=== PATIENT | female | born 1990 | race Caucasian/White ===

== ENCOUNTER 2020-07-02 08:49 | Emergency (ER) | payer OTHER, SELFPAY ==
[2020-07-02 08:49] VITALS: BP 139/83; PULSE 93; RESP 18; TEMP 36.6; O2SAT 100; BMI 18.6
[2020-07-02 08:51] VITALS: BP 139/83; PULSE 93; RESP 18; TEMP 36.6; O2SAT 100
--- NOTE | 2020-07-02 09:39 | EKG12_ITS ---
Test Reason : CP Blood Pressure : / mmHG Vent. Rate : 069 BPM Atrial Rate : 069 BPM P-R Int : 174 ms QRS Dur : 096 ms QT Int : 368 ms P-R-T Axes : -01 064 068 degrees QTc Int : 394 ms Normal sinus rhythm Normal ECG Confirmed by BLAKE LARSEN, BOB ([id number]), rewrite editor MELONIE RUSH ([id number]) on 07/05/2020 1:10:37 PM Referred By: SONNY Confirmed By:BOB LOZANO MD
--- NOTE | 2020-07-02 09:39 | CT_ITS ---
STUDY: CTA CHEST REASON FOR EXAM: Female, 29 years old. R/O PE. CP X 4 DAYS. DEEP BREATHING WORSE. COVID 1 MO AGO. RADIATION DOSAGE (If Supplied By Facility): CTDIvol = ( 4.13 ) mGy, DLP = ( 136.66 ) mGycm TECHNIQUE: The examination was performed with the intravenous administration of IV 75mL Isovue-370. Post-processing of the angiographic images was performed, with multiplanar reformation and 3D reconstruction. Individualized dose optimization techniques were used for this CT. COMPARISON: None. FINDINGS: Normal enhancement of the main pulmonary artery and right and left pulmonary arteries. Normal enhancement of the bilateral peripheral pulmonary arteries. There is no demonstrated pulmonary embolism. Normal thoracic aorta and visualized great vessels. There is no demonstrated aortic dissection. Normal heart and pericardium. Normal mediastinum. Normal hilar regions. Normal visualized trachea and bronchi. The lungs are well expanded. Normal pulmonary parenchyma. Normal pleura. Normal chest wall structures. Normal osseous structures. Normal visualized upper abdomen. CT/CTA Chest W/WO Contrast IMPRESSION: Normal CTA chest examination, without a demonstrated pulmonary embolism or arterial dissection. Electronically Signed: Aleksandr Goode, at 10:44 EST , Service support ,
--- NOTE | 2020-07-02 10:01 | ED.VISSUMM ---
- ER Visit Summary Date of Service: 07/02/20 Chief Complaint: Chest pain History of Present Illness: The patient is a 29 F presenting with chest pain. Patient states this started on Sunday. Pain has been intermittent. She states she was diagnosed with Covid over 1 month ago. She tested negative for Covid on May 29. She traveled to [place] recently and returned on Sunday. She has chills, chest pain, shortness of breath. She states the pain is worsened with deep inspiration. She states she generally still feels fatigued after Covid but otherwise her symptoms have improved. Denies family history of CAD or PE. She is not a smoker. Physical Examination: Vitals are stable. Patient is afebrile. Alert no acute distress. HEENT exam is unremarkable. Neck is supple. Lungs are clear and equal bilaterally. Heart is regular rate and rhythm. Abdomen is soft nontender nondistended. Extremities are unremarkable. Nontender, no edema Skin is warm and dry. No focal neurologic deficit. Remainder of exam is unremarkable. Emergency Department Course and Treatment: EKG is sinus rhythm rate of 69 with no acute ischemic changes. CBC, chemistries unremarkable. Troponin is negative. hCG negative. CTA chest shows normal CTA chest examination, without a demonstrated pulmonary embolism or arterial dissection. On reevaluation, patient is resting comfortably in the ED. Advised to take NSAIDs for pain. She is advised to follow-up with her primary care physician. Advised return to ED for worsening complaints. Disposition: Discharge home Impression: Atypical chest pain This note was generated with [employer] dictation software. It may contain incorrect words, spelling, and punctuation that were not noted in review of the chart prior to signing ED Disposition - Plan for ED Patient: Instructions: ED Chest Pain, Uncertain Cause Referrals: Ramesh Pratt MD [Primary Care Provider] -
[2020-07-02 10:04] LABS: Basophil# 0.03 X10^3/uL; Basophil% 0.8 % (0-1); Eosinophil# 0.09 X10^3/uL; Eosinophils% 2.3 % (0-5); Hemoglobin 13.5 g/dL (12.0-15.0); Lymphocyte % 36.2 % (19-41); Mean Corp Hgb Conc 33.8 g/dL (32-36); Mean Corpuscular Hgb 30.5 pg (27.0-32.0); Mean Corpuscular Volume 90.5 fL (81-99); Mean Platelet Vol. 10.5 fl (6.2-12.0); Monocyte# 0.38 X10^3/uL; Monocyte% 9.8 % (0-10); NRBC Flagged by Analyzer 0 % (0-5); Neutrophil # 1.96 X10^3/uL (2.7-7.7); Neutrophil % 50.6 % (47-70); Platelet Count 207 K/mm3 (150-450); RBC Distribution Width CV 12.8 % (11.6-14.6); RBC Distribution Width SD 41.9 fl (35.1-43.9); Red Blood Count 4.42 M/mm3 (4.2-5.4); White Blood Count 3.9 K/mm3 (4.4-11.0)
[2020-07-02 10:06] LABS: Internal QC Validated? YES +Cl - CLEAR BKGD; Pregnancy, Serum, hCG Quali. NEGATIVE Negative
[2020-07-02 10:10] LABS: Anion Gap 4 (5-15); BUN 16 mg/dL (7-18); BUN/Creat Ratio 25.3 RATIO (10-20); Calcium,Total 8.7 mg/dL (8.5-10.1); Chloride 106 mmol/L (98-107); Creatinine, Serum 0.63 mg/dL (0.55-1.02); EST Glomerular Filtration Rate 118 mL/min (>60); Est Glom Filt Rate - Afr Amer 143 mL/min (>60); Glucose 94 mg/dL (74-106); Potassium 3.9 mmol/L (3.5-5.1); Sodium Level 138 mmol/L (136-145)
--- NOTE | 2020-07-02 10:54 | ED.DEP ---
ED Disposition - Plan for ED Patient: Instructions: ED Chest Pain, Uncertain Cause Referrals: Ramesh Pratt MD [Primary Care Provider] -
[2020-07-02 11:12] VITALS: BP 96/65; PULSE 81; RESP 15; O2SAT 100
== END 2020-07-02 11:13 | disposition home or self-care (01) ==
LOC: ED 10:09
PROVIDERS: Emergency Provider Emergency Medicine; PCP Family Medicine
DX: R07.89 Other chest pain (principal)
CPT/HCPCS: 71275; 80048; 84484; 84703; 85025; 93005; 99284; Q9967; A4216

== ENCOUNTER → 2020-07-26 16:43 | Outpatient (CLI) | payer OTHER, SELFPAY ==
[2020-07-26 14:36] VITALS: BMI 19.3
[2020-07-26 21:00] LABS: Chlamydia Trachomatis by PCR Negative (Negative); Neisserai gonorrhoeae by PCR Negative (Negative); Probe Check PASS; Sample Adequacy Control PASS; Specimen Processing Control PASS
[2020-07-29 12:36] LABS: HPV Reflexed? NOT INDICATED
== END ==
LOC: LABSPEC 16:44
PROVIDERS: PCP Family Medicine; Referring Provider Nurse Practitioner Women's Health; Visit Provider Nurse Practitioner Women's Health
DX: Z11.3 Encounter for screening for infections with a predominantly sexual mode of transmission (principal); Z12.4 Encounter for screening for malignant neoplasm of cervix
CPT/HCPCS: 87491; 87591; 88175; G0145

== ENCOUNTER → 2020-08-05 12:23 | Outpatient (CLI) | payer OTHER, SELFPAY ==
[2020-07-26 14:36] VITALS: BMI 19.3
--- NOTE | 2020-08-05 12:27 | US_ITS ---
STUDY: ULTRASOUND OF THE FEMALE PELVIS - COMPLETE REASON FOR EXAM: Female, 29 years old. Abnormal menses LMP: 07/10/2020 TECHNIQUE: Transabdominal and Transvaginal TECHNICAL QUALITY: Adequate. COMPARISON: None. FINDINGS: The uterus is anteverted and is in a midline position. The uterus measures 8.8 cm x 4.7 cm x 4 cm. There is a Nabothian cyst of the cervix. The endometrium measures 8.6 mm in thickness, and is hyperechoic. There is no demonstrated endometrial mass. There is no demonstrated myometrial mass. I.U.D. - The patient does not have an I.U.D. The right ovary is visualized. The right ovary measures 4.1 cm x 4.4 cm x 3.4 cm. There is a 2.5 cm x 3.2 cm x 2.6 cm cyst in the right ovary. There is also evidence of a 2.3 cm x 1.6 cm x 1.2 cm Ovarian cyst. This may represent a dilated fallopian tube. There is no visualized right adnexal mass or complex lesion. There is normal arterial and normal venous vascularity. The left ovary is visualized. The left ovary measures 3.2 cm x 1.7 cm x 2.5 cm. There is no left ovarian cyst or ovarian mass. There is no visualized left adnexal mass or complex lesion. There is normal arterial and normal venous vascularity. There is no fluid in the cul-de-sac. The pre void volume of the bladder was 387 ml. US/Pelvic (Non ) IMPRESSION: 2.5 cm x 3.2 cm x 2.6 cm right ovarian cyst. 2.3 cm x 1.6 cm x 1.2 cm right paraovarian cyst. Electronically Signed: Aleksandr Goode, at 15:45 EST , Service support ,
--- NOTE | 2020-08-05 12:27 | US_ITS ---
STUDY: ULTRASOUND OF THE FEMALE PELVIS - COMPLETE REASON FOR EXAM: Female, 29 years old. Abnormal menses LMP: 07/10/2020 TECHNIQUE: Transabdominal and Transvaginal TECHNICAL QUALITY: Adequate. COMPARISON: None. FINDINGS: The uterus is anteverted and is in a midline position. The uterus measures 8.8 cm x 4.7 cm x 4 cm. There is a Nabothian cyst of the cervix. The endometrium measures 8.6 mm in thickness, and is hyperechoic. There is no demonstrated endometrial mass. There is no demonstrated myometrial mass. I.U.D. - The patient does not have an I.U.D. The right ovary is visualized. The right ovary measures 4.1 cm x 4.4 cm x 3.4 cm. There is a 2.5 cm x 3.2 cm x 2.6 cm cyst in the right ovary. There is also evidence of a 2.3 cm x 1.6 cm x 1.2 cm Ovarian cyst. This may represent a dilated fallopian tube. There is no visualized right adnexal mass or complex lesion. There is normal arterial and normal venous vascularity. The left ovary is visualized. The left ovary measures 3.2 cm x 1.7 cm x 2.5 cm. There is no left ovarian cyst or ovarian mass. There is no visualized left adnexal mass or complex lesion. There is normal arterial and normal venous vascularity. There is no fluid in the cul-de-sac. The pre void volume of the bladder was 387 ml. US/Transvaginal Non- IMPRESSION: 2.5 cm x 3.2 cm x 2.6 cm right ovarian cyst. 2.3 cm x 1.6 cm x 1.2 cm right paraovarian cyst. Electronically Signed: Aleksandr Goode, at 15:45 EST , Service support ,
== END ==
LOC: OPUS 12:24
PROVIDERS: PCP Family Medicine; Referring Provider Nurse Practitioner Women's Health; Visit Provider Nurse Practitioner Women's Health
DX: N94.6 Dysmenorrhea, unspecified (principal); N92.0 Excessive and frequent menstruation with regular cycle
CPT/HCPCS: 76830; 76856

== ENCOUNTER → 2020-08-11 08:51 | Outpatient (CLI) | payer OTHER, SELFPAY ==
[2020-07-26 14:36] VITALS: BMI 19.3
== END ==
PROVIDERS: PCP Family Medicine; Referring Provider Nurse Practitioner Women's Health; Visit Provider Nurse Practitioner Women's Health
DX: N97.0 Female infertility associated with anovulation (principal)
CPT/HCPCS: 36415

== ENCOUNTER → 2020-09-20 08:55 | Outpatient (CLI) | payer OTHER, SELFPAY ==
[2020-07-26 14:36] VITALS: BMI 19.3
--- NOTE | 2020-09-20 08:59 | US_ITS ---
STUDY: ULTRASOUND OF THE FEMALE PELVIS - COMPLETE REASON FOR EXAM: Female, 29 years old. Rt ov cyst LMP: 04/06/2021. TECHNIQUE: Transabdominal and Transvaginal TECHNICAL QUALITY: Adequate. COMPARISON: Comparison is made with prior study dated 09/05/2020. FINDINGS: The uterus is anteverted and is in a midline position. The uterus measures 8.8 cm x 5.9 cm x 4.4 cm. Normal uterine cervix. The endometrium measures 10 mm in thickness, and is hyperechoic. There is no demonstrated endometrial mass. There is no demonstrated myometrial mass. I.U.D. - The patient does not have an I.U.D. The right ovary is visualized. The right ovary measures 4.6 cm x 3.7 cm x 2.3 cm. There is a 2.5 cm x 2.7 cm x 1.8 cm septated cyst in the right ovary. There is also evidence of a 2.2 cm x 1.6 cm x 1.2 cm paraovarian cyst. There is normal arterial and normal venous vascularity. The left ovary is visualized. The left ovary measures 2.9 cm x 1.7 cm x 1.9 cm. There is no left ovarian cyst or ovarian mass. There is no visualized left adnexal mass or complex lesion. There is normal arterial and normal venous vascularity. There is minimal fluid in the cul-de-sac. The pre void volume of the bladder was 394 ml. The post void volume of the bladder was ml. Polycystic ovary disease: No. US/Transvaginal Non- IMPRESSION: 2.5 cm x 2.7 cm x 1.8 cm septated right ovarian cyst. 2.2 cm x 1.6 x 1.2 cm right paraovarian cyst. There has been essentially no change. Electronically Signed: Aleksandr Goode MD at 12:48 EST , Service support ,
--- NOTE | 2020-09-20 08:59 | US_ITS ---
STUDY: ULTRASOUND OF THE FEMALE PELVIS - COMPLETE REASON FOR EXAM: Female, 29 years old. Rt ov cyst LMP: 04/06/2021. TECHNIQUE: Transabdominal and Transvaginal TECHNICAL QUALITY: Adequate. COMPARISON: Comparison is made with prior study dated 09/05/2020. FINDINGS: The uterus is anteverted and is in a midline position. The uterus measures 8.8 cm x 5.9 cm x 4.4 cm. Normal uterine cervix. The endometrium measures 10 mm in thickness, and is hyperechoic. There is no demonstrated endometrial mass. There is no demonstrated myometrial mass. I.U.D. - The patient does not have an I.U.D. The right ovary is visualized. The right ovary measures 4.6 cm x 3.7 cm x 2.3 cm. There is a 2.5 cm x 2.7 cm x 1.8 cm septated cyst in the right ovary. There is also evidence of a 2.2 cm x 1.6 cm x 1.2 cm paraovarian cyst. There is normal arterial and normal venous vascularity. The left ovary is visualized. The left ovary measures 2.9 cm x 1.7 cm x 1.9 cm. There is no left ovarian cyst or ovarian mass. There is no visualized left adnexal mass or complex lesion. There is normal arterial and normal venous vascularity. There is minimal fluid in the cul-de-sac. The pre void volume of the bladder was 394 ml. The post void volume of the bladder was ml. Polycystic ovary disease: No. US/Pelvic (Non ) IMPRESSION: 2.5 cm x 2.7 cm x 1.8 cm septated right ovarian cyst. 2.2 cm x 1.6 x 1.2 cm right paraovarian cyst. There has been essentially no change. Electronically Signed: Aleksandr Goode MD at 12:48 EST , Service support ,
== END ==
LOC: US 08:59
PROVIDERS: PCP Family Medicine; Referring Provider Nurse Practitioner Women's Health; Visit Provider Nurse Practitioner Women's Health
DX: N83.209 Unspecified ovarian cyst, unspecified side (principal)
CPT/HCPCS: 76830; 76856

== ENCOUNTER 2020-11-23 09:59 | Day surgery (SDC) | payer OTHER, SELFPAY ==
[2020-10-04 13:04] VITALS: BMI 19.3
[2020-11-10 14:35] VITALS: BMI 18.4
[2020-11-23] VITALS (14 sets, daily range): BP systolic 86–115; BP diastolic 53–77; PULSE 46–102; RESP 16; TEMP 36.4–37.2; O2SAT 93–100; BMI 18.3
--- NOTE | 2020-11-23 10:44 | HP.PCM.OB_ITS ---
HPI - General HPI Narrative VANI SOLO, is a 29 F who presents diagnostic laparoscopy, fulguration of endometriosis, chromopertubation for pelvic pain with periods [facility] Medical History (Updated 11/23/20 @ 10:[address] Christie Peralta MD) Ovarian cyst Home Medications cranberry 400 mg capsule 400 mg PO DAILY 07/26/20 [History Last Taken Unknown] prenat.vits,geoffrey,ctd-cvem-mkgom 1 tab PO DAILY 10/04/20 [History Last Taken Unknown] Allergy/AdvReac Type Severity Reaction Status Date / Time azithromycin Allergy Rash Verified 11/16/20 11:21 [From Zithromax Z-Jeremie] Penicillins Allergy Rash Verified 11/16/20 11:21 Family History Grandmother Thyroid disorder Social History (Updated 11/10/20 @ 16:[address] 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 - [employer] history of recent travel: Yes out of state: Yes sexually active: Yes Smoking Status: Never smoker alcohol intake: current alcohol intake frequency: a few times a month substance use type: does not use what type of physical activity do you participate in: aerobics seatbelt use: always do you feel safe at home: Yes additional social history: - Dilshad History 0 Elective abortions Hx Para Spontaneous abortions Hx # Term Pregnancies Ectopic pregnancies Hx # Pregnancies Multiple births # of living children ROS Eyes Eyes: Reports systems reviewed and no addt'l complaints, except as documented ENT HEENT: Reports systems reviewed and no addt'l complaints, except as documented Cardiovascular Cardiovascular: Reports systems reviewed and no addt'l complaints, except as documented Respiratory/Chest Respiratory/Chest: Reports systems reviewed and no addt'l complaints, except as documented Gastrointestinal Gastrointestinal: Reports systems reviewed and no addt'l complaints, except as documented Genitourinary Genitourinary: Reports systems reviewed and no addt'l complaints, except as documented Musculoskeletal Musculoskeletal: Reports systems reviewed and no addt'l complaints, except as documented Integumentary Integumentary: Reports systems reviewed and no addt'l complaints, except as documented Neurologic Neurologic: Reports systems reviewed and no addt'l complaints, except as documented Psychiatric Psychiatric: Reports systems reviewed and no addt'l complaints, except as documented Endocrine Endocrinology: Reports systems reviewed and no addt'l complaints, except as documented Hematologic/Lymphatic Hematologic/Lymphatic: Reports systems reviewed and no addt'l complaints, except as documented Allergic/Immunologic Allergic/Immunologic: Reports systems reviewed and no addt'l complaints, except as documented Physical Exam Const alert, oriented x3, no apparent distress, average body habitus, healthy appearing and well nourished HEENT normocephalic and moist oral mucous membranes Head and Scalp: atraumatic Eyes PERRL and EOMs intact bilaterally Neck full ROM Resp normal respiratory effort, no retractions and no use of accessory muscles Cardio regular rate and regular rhythm GI soft to palpation, non-tender and non-distended Extremity normal to inspection and full ROM Skin no rashes or lesions noted Neuro no focal motor deficits and no sensory deficits noted Psych mental status grossly normal, affect normal, speech normal and activity/motor behavior normal Assessment & Plan Assessment/Plan (1) Dysmenorrhea: Status: Acute Code(s): N94.6 - Dysmenorrhea, unspecified (2) Ovarian cyst: Status: Acute Code(s): N83.209 - Unspecified ovarian cyst, unspecified side Qualifiers: Laterality: right Qualified Code(s): N83.201 - Unspecified ovarian cyst, right side Plan: Presents for diagnostic laparoscopy, fulguration of endometriosis, possible right ovarian cystectomy, possible right salpingo-oophorectomy, possible left, chromopertubation for ovarian cyst and pelvic pain Surgical risks discussed with the patient at the last visit and handouts given from [facility] and up-to-date.? Patient denies further questions regarding the risks and benefits of surgery. Medical history reviewed-no changes to medical or surgical history. Review of systems performed and is negative Consent form signed with patient at office visit.
[2020-11-23 10:49] LABS: Internal QC Validated? YES +Cl - CLEAR BKGD
[2020-11-23 10:51] LABS: Pregnancy, Urine Negative Negative
[2020-11-23 10:55] LABS: Hematocrit 40.3 % (37-47); Hemoglobin 13.2 g/dL (12.0-15.0); Mean Corp Hgb Conc 32.8 g/dL (32-36); Mean Corpuscular Hgb 30.1 pg (27.0-32.0); Mean Platelet Vol. 10.4 fl (6.2-12.0); Platelet Count 194 K/mm3 (150-450); RBC Distribution Width SD 43.8 fl (35.1-43.9); Red Blood Count 4.38 M/mm3 (4.2-5.4); White Blood Count 5.5 K/mm3 (4.4-11.0)
[2020-11-23] MEDS: Lactated Ringers 1,000 ML 100 ML IV ×4 (10:55→14:55)
[2020-11-23] MEDS: Bupivacaine 0.25% 30 ML Vial (11:44)
--- NOTE | 2020-11-23 12:41 | PCM.OPRPT ---
Problems Associated Problem List Diagnoses (1) Dysmenorrhea: (2) Ovarian cyst: Report of Operation Date of Procedure: 11/23/20 Pre-Operative Diagnosis: Dysmenorrhea, suspected ovarian cyst Post-Operative Diagnosis: Endometriosis, right paratubal cyst Surgery/Procedure Performed:: Diagnostic laparoscopy, fulguration of endometriosis, drainage of right paratubal cyst, chromotubation Description of Surgical Findings:: Right paratubal cyst noted. Normal-appearing uterus. Normal fallopian tubes bilaterally. Normal-appearing ovaries with left ovary adherent to pelvic sidewall. Areas of endometriosis noted over the bilateral uterosacral ligaments, ovarian fossa bilaterally, and on the left round ligament. 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 She was prepped and draped in the dorsal lithotomy position with yellofin stirrups. A weighted speculum was placed in the posterior aspect of the vagina and the anterior lip of the cervix was grasped with a single-tooth tenaculum. The uterus was sounded and found to be 8 cm. A Zumi uterine manipulator was placed without difficulty and all other instruments were removed from the vagina. Gloves were changed and attention was directed to the abdomen. The umbilicus was grasped with towel clamps. 10cc of 0.25% marcaine was used to anesthetize the umbilicus. A 5mm incision was made at the base of the umbilicus. A veress needle was inserted without difficulty and intra-abdominal placement was confirmed using the water-drop test. The abdomen was insufflated to 15 mmHg and the veress needle was removed. A 5mm optiview trochar was then placed under direct visualization. Initial survey of the abdominal cavity revealed no evidence of trauma. The above findings were noted. An additional 5mm ports were placed in the right and left lower quadrants. A [place] grasper attached to monopolar energy was used to fulgurate all noted areas of endometriosis. Chromopertubation was then performed and bilateral spill was noted. Scissors attached to monopolar cautery were used to drain the paratubal cyst. The procedure was deemed complete. All instruments were removed from the abdominal cavity. The port sites were closed in a simple interrupted fashion using 4-0 monocryl and sterile dressings were placed. The uterine manipulator was removed. The patient was awakened from anesthesia and taken to the recovery room in stable condition. Complications None apparent Admit VTE Documentation VTE Present on Admission: No VTE Mechan Device Prophylaxis: SCD's VTE Pharm Prophylaxis ordered?: No Multi Select Codes Urinary/Genital Urinary/Genital CPT Codes: 65834 Chromotubation and 72134 Laproscopic ablation endometriosis
== END 2020-11-23 16:07 ==
LOC: SDC 10:00 → AC 12:16
PROVIDERS: Anesthesiology; PCP Family Medicine; Referring Provider Obstetrics & Gynecology; Visit Provider Obstetrics & Gynecology
PROC: (CPT 49320; principal; 2020-11-23 11:15)
DX: N80.3 Endometriosis of pelvic peritoneum (principal); N94.6 Dysmenorrhea, unspecified; Z20.828 Contact with and (suspected) exposure to other viral communicable diseases; N83.201 Unspecified ovarian cyst, right side
CPT/HCPCS: 00840; 58350; 58662; 81025; 85027; 87426; C9803; J7120; J2405; Q9968

== ENCOUNTER 2021-08-02 08:12 | Outpatient (CLI) | payer OTHER, SELFPAY ==
[2021-08-02 09:11] LABS: Progesterone Level 5.33 ng/mL (See Comment)
== END 2021-08-02 23:59 | disposition short-term general hospital (02) ==
LOC: PAVLAB 08:13
PROVIDERS: PCP Family Medicine; Referring Provider Nurse Practitioner Women's Health; Visit Provider Nurse Practitioner Women's Health
DX: N97.0 Female infertility associated with anovulation (principal)
CPT/HCPCS: 36415; 84144

== ENCOUNTER 2021-10-04 17:30 | Outpatient (CLI) | payer OTHER, SELFPAY ==
[2021-10-04 18:27] LABS: Progesterone Level 9.28 ng/mL (See Comment)
== END 2021-10-04 23:59 | disposition home or self-care (01) ==
LOC: LAB 17:32
PROVIDERS: PCP Family Medicine; Visit Provider Nurse Practitioner Women's Health
DX: N97.9 Female infertility, unspecified (principal)
CPT/HCPCS: 36415; 84144

== ENCOUNTER 2021-10-18 11:41 | Outpatient (CLI) | payer OTHER, SELFPAY ==
--- NOTE | 2021-10-18 11:48 | RAD_ITS ---
STUDY: HYSTEROSALPINGOGRAM REASON FOR EXAM: Female, 30 years old. INFERTILITY FLUOROSCOPY TIME (if supplied): ( 24 second ) minutes/seconds. 3 images were obtained. TECHNIQUE: Hysterosalpingogram was performed by the manager solar. Imaging was provided. COMPARISON: None. FINDINGS: The uterus is unremarkable. Both fallopian tubes are patent with spill. RAD/Salpingogram IMPRESSION: Unremarkable hysterosalpingogram. Electronically Signed: Aleksandr Goode MD at 13:02 EDT ,
== END 2021-10-18 23:59 | disposition home or self-care (01) ==
LOC: RAD 11:44
PROVIDERS: PCP Family Medicine; Referring Provider Obstetrics & Gynecology; Visit Provider Obstetrics & Gynecology
DX: N97.0 Female infertility associated with anovulation (principal)
CPT/HCPCS: 58340; 74740; Q9967

== ENCOUNTER 2021-10-26 15:00 | Outpatient (CLI) | payer OTHER, SELFPAY | END 2021-10-26 23:59 | disposition home or self-care (01) | LOC: LABSPEC 10-27 14:01 | PROVIDERS: PCP Family Medicine; Referring Provider Nurse Practitioner Women's Health; Visit Provider Nurse Practitioner Women's Health | DX: R30.9 Painful micturition, unspecified (principal) | CPT/HCPCS: 87086; 87088 ==

== ENCOUNTER → 2021-12-09 | Outpatient (CLI) | payer OTHER, SELFPAY ==
[2021-12-09 11:33] LABS: hCG Titer Quant., Serum 462 mIU/mL (1-3)
== END | disposition home or self-care (01) ==
LOC: PAVLAB 10:29
PROVIDERS: PCP Family Medicine; Referring Provider Obstetrics & Gynecology; Visit Provider Obstetrics & Gynecology
DX: N91.2 Amenorrhea, unspecified (principal)
CPT/HCPCS: 36415; 84702

== ENCOUNTER → 2021-12-11 | Outpatient (CLI) | payer OTHER, SELFPAY ==
[2021-12-11 15:23] LABS: hCG Titer Quant., Serum 1188 mIU/mL (1-3)
== END | disposition home or self-care (01) ==
LOC: LAB 14:21
PROVIDERS: PCP Family Medicine; Visit Provider Obstetrics & Gynecology
DX: N91.2 Amenorrhea, unspecified (principal)
CPT/HCPCS: 36415; 84702

== ENCOUNTER → 2022-01-16 | Outpatient (CLI) | payer OTHER, SELFPAY ==
[2022-01-16 14:33] LABS: Absolute Lymphocyte Count 2.22 X10^3/uL (0.83-4.51); Absolute Neutrophil Count 6.3 X10^3/uL (2.0-7.7); Basophil# 0.03 X10^3/uL; Basophil% 0.3 % (0-1); Eosinophils% 1.1 % (0-5); Hematocrit 40.4 % (37-47); Hemoglobin 13.9 g/dL (12.0-15.0); Lymphocyte # 2.22 X10^3/ul (0.83-4.51); Lymphocyte % 23.8 % (19-41); Mean Corp Hgb Conc 34.4 g/dL (32-36); Mean Corpuscular Hgb 30.8 pg (27.0-32.0); Mean Corpuscular Volume 89.4 fL (81-99); Mean Platelet Vol. 10.3 fl (6.2-12.0); Monocyte% 6.4 % (0-10); NRBC Flagged by Analyzer 0 % (0-5); Neutrophil # 6.33 X10^3/uL (2.7-7.7); Platelet Count 259 K/mm3 (150-450); RBC Distribution Width CV 12.3 % (11.6-14.6); RBC Distribution Width SD 40.2 fl (35.1-43.9); Red Blood Count 4.52 M/mm3 (4.2-5.4); White Blood Count 9.3 K/mm3 (4.4-11.0)
[2022-01-16 15:26] LABS: NATERA MAILED SPECIMEN
[2022-01-16 16:38] LABS: HIV - WCH Non-Reactive (Nonreactive); Hepatitis B Surface Antigen Non-Reactive (Nonreactive); Hepatitis C Antibody Non-Reactive (Nonreactive); Rubella IgG Reactive (Nonreactive); Syphilis Antibodies Non-reactive
[2022-01-16 20:26] LABS: Amphetamine Urine VISTA NEGATIVE (<1000 ng/mL); Barbiturate Urine VISTA NEGATIVE (< 200 ng/mL); Benzodiazepine Urine VISTA NEGATIVE (< 200 ng/mL); Cocaine Urine VISTA NEGATIVE (< 300 ng/mL); Ecstacy Urine VISTA NEGATIVE (< 500 ng/mL); Methadone Urine VISTA NEGATIVE (< 300 ng/mL); PCP Urine VISTA NEGATIVE (< 25 ng/mL); THC Urine VISTA NEGATIVE (< 50 ng/mL); Vista UDS pH Range 6
[2022-01-18 22:07] LABS: Chlamydia By Nucleic Acid AMP Negative (Negative)
[2022-01-19 12:45] LABS: Gonococcus By Nucleic Acid AMP Negative (Negative)
== END | disposition home or self-care (01) ==
PROVIDERS: PCP Family Medicine; Referring Provider Obstetrics & Gynecology; Visit Provider Obstetrics & Gynecology
DX: Z34.90 Encounter for supervision of normal pregnancy, unspecified, unspecified trimester (principal)
CPT/HCPCS: 36415; 80307; 85025; 86703; 86762; 86780; 86803; 86850; 86900; 86901; 87086; 87088; 87340; 87491; 87591

== ENCOUNTER → 2022-03-27 | Outpatient (CLI) | payer OTHER, SELFPAY | END | disposition home or self-care (01) | LOC: LABSPEC 03-28 07:32 | PROVIDERS: PCP Family Medicine; Visit Provider Obstetrics & Gynecology | DX: O26.899 Other specified pregnancy related conditions, unspecified trimester (principal); O99.891 Other specified diseases and conditions complicating pregnancy; N89.8 Other specified noninflammatory disorders of vagina; Z3A.00 Weeks of gestation of pregnancy not specified | CPT/HCPCS: 87070; 87205 ==

== ENCOUNTER → 2022-05-26 | Outpatient (CLI) | payer OTHER, SELFPAY ==
[2022-05-26 10:09] LABS: Absolute Lymphocyte Count 1.41 X10^3/uL (0.83-4.51); Absolute Neutrophil Count 6.5 X10^3/uL (2.0-7.7); Basophil# 0.02 X10^3/uL; Basophil% 0.2 % (0-1); Eosinophil# 0.06 X10^3/uL; Eosinophils% 0.7 % (0-5); Hematocrit 38.2 % (37-47); Hemoglobin 13.1 g/dL (12.0-15.0); Lymphocyte # 1.41 X10^3/ul (0.83-4.51); Lymphocyte % 16.5 % (19-41); Mean Corp Hgb Conc 34.3 g/dL (32-36); Mean Corpuscular Hgb 32.3 pg (27.0-32.0); Mean Corpuscular Volume 94.1 fL (81-99); Mean Platelet Vol. 10.2 fl (6.2-12.0); Monocyte# 0.48 X10^3/uL; Monocyte% 5.6 % (0-10); NRBC Flagged by Analyzer 0 % (0-5); Neutrophil # 6.53 X10^3/uL (2.7-7.7); Neutrophil % 76.5 % (47-70); Platelet Count 226 K/mm3 (150-450); RBC Distribution Width CV 13.1 % (11.6-14.6); RBC Distribution Width SD 44.9 fl (35.1-43.9); Red Blood Count 4.06 M/mm3 (4.2-5.4); White Blood Count 8.5 K/mm3 (4.4-11.0)
[2022-05-26 10:34] LABS: Glucose Challenge Gest 1H 50g 133 mg/dL (70-140)
== END | disposition home or self-care (01) ==
LOC: LAB 09:38
PROVIDERS: PCP Family Medicine; Referring Provider Obstetrics & Gynecology; Visit Provider Obstetrics & Gynecology
DX: Z34.00 Encounter for supervision of normal first pregnancy, unspecified trimester (principal)
CPT/HCPCS: 36415; 82950; 85025; 86850; 86900; 86901

== ENCOUNTER 2022-08-14 01:30 | Outpatient (CLI) | payer OTHER, SELFPAY ==
[2022-08-14] VITALS (11 sets, daily range): BP systolic 106–120; BP diastolic 70–80; PULSE 74–118; TEMP 36.8–37.3; O2SAT 86–97; BMI 25.5
[2022-08-14 04:05] LABS: Group B Strep DNA By PCR Negative (Negative); Internal Control PASS; Probe Check PASS; Specimen Processing Control PASS
[2022-08-14] MEDS: Lactated Ringers 1,000 ML 50 ML IV (04:30)
[2022-08-14 05:02] LABS: Absolute Lymphocyte Count 1.91 X10^3/uL (0.83-4.51); Absolute Neutrophil Count 6.7 X10^3/uL (2.0-7.7); Basophil# 0.03 X10^3/uL; Basophil% 0.3 % (0-1); Eosinophil# 0.06 X10^3/uL; Eosinophils% 0.6 % (0-5); Hematocrit 37.3 % (37-47); Hemoglobin 12.5 g/dL (12.0-15.0); Lymphocyte # 1.91 X10^3/ul (0.83-4.51); Lymphocyte % 19.8 % (19-41); Mean Corp Hgb Conc 33.5 g/dL (32-36); Mean Corpuscular Hgb 30.9 pg (27.0-32.0); Mean Corpuscular Volume 92.3 fL (81-99); Mean Platelet Vol. 11.3 fl (6.2-12.0); Monocyte# 0.82 X10^3/uL; Monocyte% 8.5 % (0-10); NRBC Flagged by Analyzer 0 % (0-5); Neutrophil # 6.74 X10^3/uL (2.7-7.7); Neutrophil % 70.1 % (47-70); Platelet Count 216 K/mm3 (150-450); RBC Distribution Width CV 13.2 % (11.6-14.6); RBC Distribution Width SD 44.6 fl (35.1-43.9); Red Blood Count 4.04 M/mm3 (4.2-5.4); White Blood Count 9.6 K/mm3 (4.4-11.0)
--- NOTE | 2022-08-14 08:16 | HP.PCM.OB_ITS ---
HPI - General General Date of Admission: 08/14/22 HPI Narrative VANI SOLO, is a 31 F who presents with contractions q2-3 minutes and light vaginal bleeding. + movement, no lof. placenta previa resolved at 32 weeks, 2.6cm from os. Maternal Data Information ALISSON Calculator Estimated Delivery Date Method Current WG Current Estimate 08/16/22 LMP (Certain) 39w 5d PFSH PFSH Medical History Dyspareunia History of hysterosalpingogram Ovarian cyst Home Medications prenat.vits,geoffrey,[id number] 1 tab PO DAILY 10/04/20 [History Last Taken 08/13/22] Allergy/AdvReac Type Severity Reaction Status Date / Time azithromycin Allergy Rash Verified 08/14/22 01:53 [From Zithromax Z-Jeremie] Penicillins Allergy Rash Verified 08/14/22 01:53 Family History Grandmother Thyroid disorder Surgical History S/P laparoscopy no surgical history Social History adopted: No household members: spouse number of children: 0 current occupational status: employed 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 pets and animals: Yes (avoid litter box) pets and animals: cat(s) and dog(s) history of recent travel: Yes out of state: Yes out of country: No sexually active: Yes Smoking Status: Never smoker alcohol intake: current alcohol intake frequency: a few times a month details: not while substance use type: does not use what type of physical activity do you participate in: aerobics seatbelt use: always do you feel safe at home: Yes additional social history: - Dilshad History 1 Elective abortions Hx Para 0 Spontaneous abortions Hx # Term Pregnancies Ectopic pregnancies Hx # Pregnancies Multiple births # of living children Visit Details Expected Delivery Route/Plan Labor Preferences- CB/BF classes: [recommended] labor support person: [Dilshad] labor intervention preferences: [] pain management options preferred: open to epidural, undecided though if she wants it cut cord/dad catch: yes : yes PP control planned: discussed discussed possible routes of delivery and associated risks: special requests: [] Plans Covid status: discussed Flu vaccine: given Tdap vaccine: given Rhogam: given LARC form signed: yes movement and labor precautions reviewed. Problem list reviewed and updated with the most current plan of care details and appropriate orders placed. Relevant counseling for the gestational age provided. Continue routine care and follow up unless otherwise noted in visit notes/problem list details OB Flowsheet Initial Weight: Not Recorded Date -?-?-?-?-?-?-?-?-?-?-?-?- EGA Weight BP Urine Prot -?-?-?-?-?-?-?-?-?-?-?-?- Glucose FHR FuHt Pres Dilation -?-?-?-?-?-?-?-?-?-?-?-?- Effaced St Visit Note 01/16/22 -?-?--?-?-?-?-?-?-?-?-?-?- 9w 5d 112 lb 110/72 -?-?-?-?-?-?-?-?-?-?-?-?- 170 -?-?-?-?-?-?-?-?-?-?-?-?- SM- CRL 2.83cm c ons with LMP 02/27/22 -?-?-?-?-?-?-?-?-?-?-?-?- 15w 5d 130 lb 6 oz 116/62 Nega tive -?-?-?-?-?-?-?-?-?-?-?-?- Negative 142 -?-?-?-?-?-?-?-?-?-?-?-?- MH-No VB, LOF. F eels well. Reviewed need for rhogam. 03/27/22 -?-?-?-?-?-?-?-?-?-?-?-?- 19w 5d 140 lb 2 oz 110/62 Nega tive -?-?-?-?-?-?-?-?-?-?-?-?- Negative 145 20 -?-?-?-?-?-?-?-?-?-?-?-?- SM- co orange di holly no blood or brown discharge, swab done for infection no rhogam given. discussed previa diagnosis 04/24/22 -?-?-?-?-?-?-?-?-?-?-?-?- 23w 5d 144 lb 8 oz 118/76 Nega tive -?-?-?-?-?-?-?-?-?-?-?-?- Negative 144 -?-?-?-?-?-?-?-?-?-?-?-?- MH-No VB, LOF. G ood FM. Rpt US to check previa 05/24. Flu vaccine. 05/26/22 -?-?-?-?-?-?-?-?-?-?-?-?- 28w 2d 151 lb 110/64 Negative -?-?-?-?-?-?-?-?-?-?-?-?- Negative 145 29 -?-?-?-?-?-?-?-?-?-?-?-?- SM- no vb lof go od fm no regular ctx passed GCT rhogam today 06/05/22 -?-?-?-?-?-?-?-?-?-?-?-?- 29w 5d 152 lb 107/69 -?-?-?-?-?-?-?-?-?-?-?-?- 140 29 Cephalic -?-?-?-?-?-?-?-?-?-?-?-?- LC-no vb,lof,ctx . good FM.discussed wt gain in . can increase walking. ultrasound f/u scheduled. LC-no vb,lof,ctx. good FM.di scussed wt gain in . can increase walking. ultrasound f/u scheduled. LARC signed. tdap given today. 06/19/22 -?-?-?-?-?-?-?-?-?-?-?-?- 31w 5d 153 lb 8 oz 106/64 Nega tive -?-?-?-?-?-?-?-?-?-?-?-?- Negative 154 31 -?-?-?-?-?-?-?-?-?-?-?-?- MH-No Vb, LOF. G ood Fm. Next US 06/3007/03/22 -?-?-?-?-?-?-?-?-?-?-?-?- 33w 5d 155 lb 94/66 Negative -?-?-?-?-?-?-?-?-?-?-?-?- Negative 145 34 -?-?-?-?-?-?-?-?-?-?-?-?- SM- no vb lof g ood fm no regular ctx 07/17/22 -?-?-?-?-?-?-?-?-?-?-?-?- 35w 5d 156 lb 2 oz 96/70 -?-?-?-?-?-?-?-?-?-?-?-?- 140 36 Cephalic -?-?-?-?-?-?-?-?-?-?-?-?- LC-no vb/ctx/lof . excellent FM. 08/03/22 -?-?-?-?-?-?-?-?-?-?-?-?- 38w 1d 161 lb 101/70 Negative -?-?-?-?-?-?-?-?-?-?-?-?- Negative 150 38 Cephalic -?-?-?-?-?-?-?-?-?-?-?-?- JV- patient decl sam pelvic exam today. She denies contractions, lof, vaginal bleeding, or dec fm. 08/10/22 -?-?-?-?-?-?-?-?-?-?-?-?- 39w 1d 164 lb 119/80 Negative -?-?-?-?-?-?-?-?-?-?-?-?- Negative 155 38 Cephalic -?-?-?-?-?-?-?-?-?-?-?-?- JV- no exam per patient today. no lof, vaginal bleeding, or dec fm. fmla filled out. 08/14/22 -?-?-?-?-?-?-?-?-?-?-?-?- 39w 5d 163 lb 3.2 oz 116/73 120/80 111/71 118/70 -?-?-?-?-?-?-?-?-?-?-?-?- -?-?-?-?-?-?-?-?-?-?-?-?- NST FHR Rate Baby A Baseline: 140 Variability:: Moderate Accelerations:: 15 x 15 Decelerations:: None NST Reactive:: Yes FHR Category:: Category I Assessment Assessment Detail: q5 minutes ROS Cardiovascular Cardiovascular: Denies edema Respiratory/Chest Respiratory/Chest: Denies change in mental status, chest tightness or cough Gastrointestinal Gastrointestinal: Denies diarrhea, hemorrhoids, nausea or vomiting Genitourinary Genitourinary: Denies change in urinary stream Musculoskeletal Musculoskeletal: Reports none Integumentary Integumentary: Reports none Neurologic Neurologic: Reports none Psychiatric Psychiatric: Reports none Endocrine Endocrinology: Reports none Hematologic/Lymphatic Hematologic/Lymphatic: Reports none Allergic/Immunologic Allergic/Immunologic: Reports none Vital Signs Vital Signs Vital Signs: 08/14/22 01:42 08/14/22 01:42 08/14/22 01:43 Temperature Temperature Source Pulse Rate 115 H Blood Pressure 116/73 BP Systolic 116 BP Diastolic 73 Pulse Ox 86 08/14/22 01:43 08/14/22 01:45 08/14/22 01:43 Temperature 98.4 F Temperature Source Temporal Pulse Rate 118 H Blood Pressure BP Systolic BP Diastolic Pulse Ox 08/14/22 01:44 08/14/22 05:58 08/14/22 05:58 Temperature Temperature Source Pulse Rate 95 78 Blood Pressure 120/80 BP Systolic 120 BP Diastolic 80 Pulse Ox 08/14/22 05:58 08/14/22 05:58 08/14/22 05:59 Temperature 98.2 F Temperature Source Temporal Pulse Rate 85 Blood Pressure BP Systolic BP Diastolic Pulse Ox 08/14/22 05:59 08/14/22 07:18 08/14/22 07:18 Temperature Temperature Source Pulse Rate 74 Blood Pressure 111/71 BP Systolic 111 BP Diastolic 71 Pulse Ox 97 08/14/22 07:18 08/14/22 08:04 08/14/22 08:04 Temperature 98.4 F 98.4 F Temperature Source Pulse Rate Blood Pressure 118/70 BP Systolic 118 BP Diastolic 70 Pulse Ox 08/14/22 08:04 Temperature Temperature Source Pulse Rate 85 Blood Pressure BP Systolic BP Diastolic Pulse Ox Weight Weight: 163 lb 3.2 oz Body Mass Index (BMI) 25.5 Physical Exam Const alert, oriented x3 and no apparent distress General Appearance: cooperative, comfortable and well kempt; Negative for in distress Orientation / Consciousness: awake and oriented to person Exam Limitations: no limitations HEENT normocephalic Neck full ROM Chest inspection of chest normal Resp normal respiratory effort Effort and Inspection: able to speak in complete sentences and symmetric chest movement GI normal to inspection, nondistended, normoactive bowel sounds Inspection: gravid no CVA tenderness and appearance of the vagina normal External Female Exam: normal appearance of the urethra; Negative for external lesion OB / External & Speculum: external exam normal and other bloody show Manual OB Exam: estimated gestational size appropriate, presentation cephalic, dilated 4, effaced 90 and station -2 Uterus Palpation: Negative for uterus tender Amniotic Fluid: no amniotic fluid noted Extremity normal to inspection Skin no rashes or lesions noted Labs Labs Labs: Blood Type A NEGATIVE Antibody Screen NEGATIVE Hct 37.3 % (37-47) Hgb 12.5 g/dL (12.0-15.0) Syphilis Total Ab Non-reactive Rubella IgG Antibody Reactive (Nonreactive) Hep Bs Antigen Non-Reactive (Nonreactive) Chlamydia DNA (JAY) Negative (Negative) Neisseria gonorrhoeae DNA (JAY) Negative (Negative) HIV 1&2 Antibody Non-Reactive (Nonreactive) Glucose 1 Hr 50 gm 133 mg/dL (70-140) Group B Strep DNA Negative (Negative) Miscellaneous Test Assessment & Plan (1) Spontaneous onset of labor: COMMENT: vaginal bleeding consistent with bloody show. no s/sx of abruption. previa resolved PLAN: admit to L&D with routine orders continue with minimal intervention pain management per request Dr. Peguero updated on POC and agrees with midwifery level of care
--- NOTE | 2022-08-14 12:15 | PN.OBGYN_ITS ---
Subjective Subjective pt with non intensifying contractions. able to breath through and talk through. Objective Data Objective Data Vital Signs: Vital Signs Temp Pulse BP Pulse Ox 99.1 F 83 106/73 97 08/14/22 10:59 08/14/22 10:59 08/14/22 10:59 08/14/22 05:59 Weight: 163 lb 3.2 oz Body Mass Index (BMI) 25.5 Intake & Output: Intake and Output for Last 24 Hours 08/12/22 08/13/22 08/14/22 23:59 23:59 23:59 Intake Total 267.5 / 267.5 Output Total 300 / 300 Balance -32.5 / -32.5 Lab / Micro Data Attestation: I reviewed the patient's lab results. Result Diagrams: 08/14/22 04:30 Labs: Laboratory Results - last 24 hr 08/14/22 02:30: Group B Strep DNA Negative, Specimen Comment Not Reportable 08/14/22 04:30: WBC 9.6, RBC 4.04 L, Hgb 12.5, Hct 37.3, MCV 92.3, MCH 30.9, MCHC 33.5, RDW Std Deviation 44.6 H, RDW Coeff of Pete 13.2, Plt Count 216, MPV 11.3, Immature Gran % (Auto) 0.700, Neut % (Auto) 70.1 H, Lymph % (Auto) 19.8, [place] % (Auto) 8.5, Eos % (Auto) 0.6, Baso % (Auto) 0.3, Absolute Neuts (auto) 6.7, Absolute Lymphs (auto) 1.91, Nucleated RBC % 0 08/14/22 04:30: Blood Type A NEGATIVE, Antibody Screen NEGATIVE Physical Exam Narrative overall unchanged cervical exam from admission. mild contraction to palpation q5 minutes. Assessment & Plan (1) Spontaneous onset of labor: COMMENT: vaginal bleeding consistent with bloody show. no s/sx of abruption. previa resolved PLAN: Plan pt with unchanged cervical exam. no evidence of previa/abruption. vaginal bleeding most consistent with bloody show. cat 1 strip. desires d/c to home to wait for spontaneous labor with cervical change. instructions provided on labor precautions. discussed with dr. betancourt who agrees with above plan and for d/c home.
== END 2022-08-14 12:00 | disposition home or self-care (01) ==
LOC: WPOUT 01:34 → WP 04:14
PROVIDERS: PCP Family Medicine; Referring Provider Obstetrics & Gynecology; Visit Provider Obstetrics & Gynecology
DX: O47.03 False labor before 37 completed weeks of gestation, third trimester (principal); Z3A.32 32 weeks gestation of pregnancy
CPT/HCPCS: 96365; 96366; 36415; 59025; 59050; 85025; 86850; 86900; 86901; 87081; 87653; 99221; J7120; G0378

== ENCOUNTER 2022-08-16 05:59 | Inpatient (IN) | payer OTHER, SELFPAY ==
[2022-08-16] VITALS (92 sets, daily range): BP systolic 61–156; BP diastolic 39–88; PULSE 69–193; RESP 17–18; TEMP 36.1–37.1; O2SAT 60–100; BMI 25.9
[2022-08-16 05:58] LABS: ROM Internal Control Test YES-OK TO RESULT pt. (Internal QC)
[2022-08-16 05:59] LABS: ROM Patient Test POSITIVE (Negative)
[2022-08-16] MEDS: LACTATED RINGERS 500 ML 999 ML IV ×4 (06:06→16:49)
[2022-08-16 06:20] LABS: Absolute Lymphocyte Count 1.86 X10^3/uL (0.83-4.51); Absolute Neutrophil Count 9.4 X10^3/uL (2.0-7.7); Basophil# 0.02 X10^3/uL; Basophil% 0.2 % (0-1); Eosinophil# 0.03 X10^3/uL; Eosinophils% 0.2 % (0-5); Hematocrit 39.2 % (37-47); Hemoglobin 13.3 g/dL (12.0-15.0); Lymphocyte # 1.86 X10^3/ul (0.83-4.51); Mean Corp Hgb Conc 33.9 g/dL (32-36); Mean Corpuscular Hgb 31.3 pg (27.0-32.0); Mean Corpuscular Volume 92.2 fL (81-99); Mean Platelet Vol. 10.9 fl (6.2-12.0); Monocyte# 0.99 X10^3/uL; NRBC Flagged by Analyzer 0 % (0-5); Neutrophil # 9.42 X10^3/uL (2.7-7.7); Neutrophil % 76.1 % (47-70); Platelet Count 211 K/mm3 (150-450); RBC Distribution Width CV 13.2 % (11.6-14.6); RBC Distribution Width SD 43.8 fl (35.1-43.9); Red Blood Count 4.25 M/mm3 (4.2-5.4); White Blood Count 12.4 K/mm3 (4.4-11.0)
[2022-08-16] MEDS: Lactated Ringers 1,000 ML 50 ML IV (06:36)
[2022-08-16] MEDS: fentaNYL-bupivacaine (epidural) 100 ML BAG EPIDURAL ×3 (06:58→16:11)
--- NOTE | 2022-08-16 08:39 | HP.PCM.OB_ITS ---
HPI - General General Date of Admission: 08/16/22 HPI Narrative VANI SOLO, is a 31 F who presents G1, P0 at 40 weeks gestation with leaking of fluid and consistent contractions with worsening intensity. Positive movement, mucousy vaginal bleeding. A-, GBS negative. Maternal Data Information ALISSON Calculator Estimated Delivery Date Method Current WG Current Estimate 08/16/22 LMP (Certain) 40w 0d PFSH PFSH Medical History Dyspareunia History of hysterosalpingogram Ovarian cyst Home Medications prenat.vits,geoffrey,[id number] 1 tab PO DAILY 10/04/20 [History Last Taken 08/15/22 08:00] Allergy/AdvReac Type Severity Reaction Status Date / Time azithromycin Allergy Rash Verified 08/16/22 05:58 [From Zithromax Z-Jeremie] Penicillins Allergy Rash Verified 08/16/22 05:58 Family History Grandmother Thyroid disorder Surgical History S/P laparoscopy Social History adopted: No household members: spouse number of children: 0 current occupational status: employed 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 [employer] pets and animals: Yes (avoid litter box) pets and animals: cat(s) and dog(s) history of recent travel: Yes out of state: Yes out of country: No sexually active: Yes Smoking Status: Never smoker alcohol intake: current alcohol intake frequency: a few times a month details: not while substance use type: does not use what type of physical activity do you participate in: aerobics seatbelt use: always do you feel safe at home: Yes additional social history: - Dilshad History 1 Elective abortions Hx Para 0 Spontaneous abortions Hx # Term Pregnancies Ectopic pregnancies Hx # Pregnancies Multiple births # of living children Visit Details Expected Delivery Route/Plan Labor Preferences- CB/BF classes: [recommended] labor support person: [Dilshad] labor intervention preferences: [] pain management options preferred: open to epidural, undecided though if she wants it cut cord/dad catch: yes : yes PP control planned: discussed discussed possible routes of delivery and associated risks: special requests: [] Plans Covid status: discussed Flu vaccine: given Tdap vaccine: given Rhogam: given LARC form signed: yes movement and labor precautions reviewed. Problem list reviewed and updated with the most current plan of care details and appropriate orders placed. Relevant counseling for the gestational age provided. Continue routine care and follow up unless otherwise noted in visit notes/problem list details OB Flowsheet Initial Weight: Not Recorded Date -?-?-?-?-?-?-?-?-?-?-?-?- EGA Weight BP Urine Prot -?-?-?-?-?-?-?-?-?-?-?-?- Glucose FHR FuHt Pres Dilation -?-?-?-?-?-?-?-?-?-?-?-?- Effaced St Visit Note 01/16/22 -?-?-?-?-?-?-?-?-?-?-?-?- 9w 5d 112 lb 110/72 -?-?-?-?-?-?-?-?-?-?-?-?- 170 -?-?-?-?-?-?-?-?-?-?-?-?- SM- CRL 2.83cm c ons with LMP 02/27/22 -?-?-?-?-?-?-?-?-?-?-?-?- 15w 5d 130 lb 6 oz 116/62 Nega tive -?-?-?-?-?-?-?-?-?-?-?-?- Negative 142 -?-?-?-?-?-?-?-?-?-?-?-?- MH-No VB, LOF. F eels well. Reviewed need for rhogam. 03/27/22 -?-?-?-?-?-?-?-?-?-?-?-?- 19w 5d 140 lb 2 oz 110/62 Nega tive -?-?-?-?-?-?-?-?-?-?-?-?- Negative 145 20 -?-?-?-?-?-?-?-?-?-?-?-?- SM- co orange di holly no blood or brown discharge, swab done for infection no rhogam given. discussed previa diagnosis 04/24/22 -?-?-?-?-?-?-?-?-?-?-?-?- 23w 5d 144 lb 8 oz 118/76 Nega tive -?-?-?-?-?-?-?-?-?-?-?-?- Negative 144 -?-?-?-?-?-?-?-?-?-?-?-?- MH-No VB, LOF. G ood FM. Rpt US to check previa 05/24. Flu vaccine. 05/26/22 -?-?-?-?-?-?-?-?-?-?-?-?- 28w 2d 151 lb 110/64 Negative -?-?-?-?-?-?-?--?-?-?-?-?- Negative 145 29 -?-?-?-?-?-?-?-?-?-?-?-?- SM- no vb lof go od fm no regular ctx passed GCT rhogam today 06/05/22 -?-?-?-?-?-?-?-?-?-?-?-?- 29w 5d 152 lb 107/69 -?-?-?-?-?-?-?-?-?-?-?-?- 140 29 Cephalic -?-?-?-?-?-?-?-?-?-?-?-?- LC-no vb,lof,ctx . good FM.discussed wt gain in . can increase walking. ultrasound f/u scheduled. LC-no vb,lof,ctx. good FM.di scussed wt gain in . can increase walking. ultrasound f/u scheduled. LARC signed. tdap given today. 06/19/22 -?-?-?-?-?-?-?-?-?-?-?-?- 31w 5d 153 lb 8 oz 106/64 Nega tive -?-?-?-?-?-?-?-?-?-?-?-?- Negative 154 31 -?-?-?-?-?-?-?-?-?-?-?-?- MH-No Vb, LOF. G ood Fm. Next US 06/3007/03/22 -?-?-?-?-?-?-?-?-?-?-?-?- 33w 5d 155 lb 94/66 Negative -?-?-?-?-?-?-?-?-?-?-?-?- Negative 145 34 -?-?-?-?-?-?-?-?-?-?-?-?- SM- no vb lof g ood fm no regular ctx 07/17/22 -?-?-?-?-?-?-?-?-?-?-?-?- 35w 5d 156 lb 2 oz 96/70 -?-?--?-?-?-?-?-?-?-?-?-?- 140 36 Cephalic -?-?-?-?-?-?-?-?-?-?-?-?- LC-no vb/ctx/lof . excellent FM. 08/03/22 -?-?-?-?-?-?-?-?-?-?-?-?- 38w 1d 161 lb 101/70 Negative -?-?-?-?-?-?-?-?-?-?-?-?- Negative 150 38 Cephalic -?-?-?-?-?-?-?-?-?-?-?-?- JV- patient decl sam pelvic exam today. She denies contractions, lof, vaginal bleeding, or dec fm. 08/10/22 -?-?-?-?-?-?-?-?-?-?-?-?- 39w 1d 164 lb 119/80 Negative -?-?-?-?-?-?-?-?-?-?-?-?- Negative 155 38 Cephalic -?-?-?-?-?-?-?-?-?-?-?-?- JV- no exam per patient today. no lof, vaginal bleeding, or dec fm. fmla filled out. NST FHR Rate Baby A Baseline: 145 Variability:: Moderate Accelerations:: None Decelerations:: Variable NST Reactive:: Yes FHR Category:: Category II Uterine Activity:: q3 minutes ROS Cardiovascular Cardiovascular: Denies abdominal pain, chest pain, diaphoresis, dyspnea, edema or fatigue Respiratory/Chest Respiratory/Chest: Denies change in mental status, chest congestion, chest tightness or cough Gastrointestinal Gastrointestinal: Denies diarrhea, hemorrhoids, nausea, vomiting or weight changes Genitourinary Genitourinary: Denies abdominal discomfort, burning urination, change in libido, change in urinary stream, contractions, difficulty urinating, dysuria, movement, low back pain, urinary frequency, urinary hesitancy, urinary incontinence or urinary urgency Musculoskeletal Musculoskeletal: Reports none Integumentary Integumentary: Reports none Neurologic Neurologic: Reports none Psychiatric Psychiatric: Reports none Endocrine Endocrinology: Reports none Hematologic/Lymphatic Hematologic/Lymphatic: Reports none Allergic/Immunologic Allergic/Immunologic: Reports none Vital Signs Vital Signs Vital Signs: 08/16/22 05:39 08/16/22 05:39 08/16/22 05:39 Temperature Temperature Source Temporal Pulse Rate 84 Blood Pressure 121/81 H BP Systolic 121 BP Diastolic 81 Pulse Ox 08/16/22 05:39 08/16/22 06:44 08/16/22 06:44 Temperature 97.3 F L Temperature Source Pulse Rate 89 Blood Pressure BP Systolic BP Diastolic Pulse Ox 96 08/16/22 06:46 08/16/22 06:46 08/16/22 06:49 Temperature Temperature Source Pulse Rate 86 89 Blood Pressure 148/83 H BP Systolic 148 BP Diastolic 83 Pulse Ox 08/16/22 06:49 08/16/22 06:51 08/16/22 06:51 Temperature Temperature Source Pulse Rate 83 Blood Pressure 150/84 H BP Systolic 150 BP Diastolic 84 Pulse Ox 98 08/16/22 06:54 08/16/22 06:54 08/16/22 06:56 Temperature Temperature Source Pulse Rate 80 Blood Pressure 138/72 H BP Systolic 138 BP Diastolic 72 Pulse Ox 98 08/16/22 06:56 08/16/22 06:59 08/16/22 06:59 Temperature Temperature Source Pulse Rate 99 112 H Blood Pressure BP Systolic BP Diastolic Pulse Ox 98 08/16/22 07:00 08/16/22 07:00 08/16/22 07:01 Temperature Temperature Source Pulse Rate 118 H Blood Pressure 104/63 114/73 BP Systolic 104 114 BP Diastolic 63 73 Pulse Ox 08/16/22 07:01 08/16/22 07:04 08/16/22 07:04 Temperature Temperature Source Pulse Rate 98 95 Blood Pressure BP Systolic BP Diastolic Pulse Ox 96 08/16/22 07:06 08/16/22 07:06 08/16/22 07:09 Temperature Temperature Source Pulse Rate 88 84 Blood Pressure 117/67 BP Systolic 117 BP Diastolic 67 Pulse Ox 08/16/22 07:09 08/16/22 07:12 08/16/22 07:12 Temperature Temperature Source Pulse Rate 96 Blood Pressure 114/77 BP Systolic 114 BP Diastolic 77 Pulse Ox 95 08/16/22 07:14 08/16/22 07:14 08/16/22 07:15 Temperature 97.0 F L Temperature Source Pulse Rate 81 Blood Pressure BP Systolic BP Diastolic Pulse Ox 96 08/16/22 07:17 08/16/22 07:17 08/16/22 07:19 Temperature Temperature Source Pulse Rate 73 86 Blood Pressure 113/69 BP Systolic 113 BP Diastolic 69 Pulse Ox 08/16/22 07:19 08/16/22 07:22 08/16/22 07:22 Temperature Temperature Source Pulse Rate 75 Blood Pressure 122/72 H BP Systolic 122 BP Diastolic 72 Pulse Ox 94 08/16/22 07:24 08/16/22 07:24 08/16/22 07:26 Temperature Temperature Source Pulse Rate 69 Blood Pressure 112/68 BP Systolic 112 BP Diastolic 68 Pulse Ox 97 08/16/22 07:26 08/16/22 07:29 08/16/22 07:29 Temperature Temperature Source Pulse Rate 77 80 Blood Pressure BP Systolic BP Diastolic Pulse Ox 98 08/16/22 07:32 08/16/22 07:32 08/16/22 08:02 Temperature 97.3 F L Temperature Source Pulse Rate 77 Blood Pressure 121/79 H BP Systolic 121 BP Diastolic 79 Pulse Ox 08/16/22 08:02 08/16/22 08:03 08/16/22 08:03 Temperature Temperature Source Temporal Pulse Rate 193 H Blood Pressure 151/88 H BP Systolic 151 BP Diastolic 88 Pulse Ox 08/16/22 08:03 08/16/22 08:04 01/18/23 08:04 Temperature Temperature Source Pulse Rate 78 Blood Pressure 112/55 L BP Systolic 112 BP Diastolic 55 Pulse Ox 94 Weight Weight: 161 lb 2.526 oz Body Mass Index (BMI) 25.9 Physical Exam Const alert, oriented x3 and no apparent distress General Appearance: cooperative, comfortable and well kempt; Negative for in distress Orientation / Consciousness: awake and oriented to person Exam Limitations: no limitations HEENT normocephalic Mouth: oral and palatal mucosa normal Neck full ROM and thyroid normal Chest inspection of chest normal Resp normal respiratory effort Effort and Inspection: able to speak in complete sentences and symmetric chest movement Cardio regular rate Peripheral Pulses: pulses 2+ throughout GI normal to inspection, nondistended, normoactive bowel sounds Inspection: gravid no CVA tenderness and appearance of the vagina normal External Female Exam: normal appearance of the urethra; Negative for external lesion OB / External & Speculum: external exam normal Manual OB Exam: estimated gestational size appropriate and presentation cephalic Uterus Palpation: Negative for uterus tender Extremity normal to inspection Skin no rashes or lesions noted Neuro deep tendon reflexes 2+ bilaterally and gait normal Motor Exam: strength 5/5 throughout and clonus absent Psych Activity / Motor Behavior: appropriate eye contact Speech: normal speech Labs Labs Labs: Blood Type A NEGATIVE Antibody Screen NEGATIVE Hct 39.2 % (37-47) Hgb 13.3 g/dL (12.0-15.0) Syphilis Total Ab Non-reactive Rubella IgG Antibody Reactive (Nonreactive) Hep Bs Antigen Non-Reactive (Nonreactive) Chlamydia DNA (JAY) Negative (Negative) Neisseria gonorrhoeae DNA (JAY) Negative (Negative) HIV 1&2 Antibody Non-Reactive (Nonreactive) Glucose 1 Hr 50 gm 133 mg/dL (70-140) Group B Strep DNA Negative (Negative) Miscellaneous Test Assessment & Plan (1) Spontaneous onset of labor: COMMENT: vaginal bleeding consistent with bloody show. no s/sx of abruption. previa resolved (2) Rh negative state in antepartum period: COMMENT: Rhogam 28 wk, pp and prn bleeding (3) : QUALIFIERS: Weeks of gestation: 39 weeks Qualified Code(s): Z3A.39 - 39 weeks gestation of COMMENT: GBS Negative, NIPT low risk, carrier neg. , declined afp s creen. nl anatomy. (4) Supervision of normal first : COMMENT: [id number] ALISSON:08/16/22 surprise Sp:Dilshad (5) Family history of clubfoot: COMMENT: brothers X 2 PLAN: Plan Patient presents IAL with SROM Pain management: plans epidural. GBS negative. Management of any complications: none I have reviewed the [facility] and made any clinically relevant updates. Dr. Crook updated on POC and agrees with midwifery level of care.
[2022-08-16] MEDS: Lactated Ringers 1,000 ML 200 ML IV (12:10)
--- NOTE | 2022-08-16 12:29 | PCM.PN.OB ---
Objective Data Objective Data Vital Signs: Vital Signs Temp Pulse BP Pulse Ox 98.7 F 129 H 133/62 H 96 08/16/22 12:32 08/16/22 12:33 08/16/22 12:32 08/16/22 12:33 Weight: 161 lb 2.526 oz Body Mass Index (BMI) 25.9 Intake & Output: Intake and Output for Last 24 Hours 08/14/22 08/15/22 08/16/22 23:59 23:59 23:59 Intake Total 1278.33 / 1278.33 Balance 1278.33 / 1278.33 Lab / Micro Data Result Diagrams: 08/16/22 06:06 Labs: Laboratory Results - last 24 hr 08/16/22 05:45: Vag Amniotic Fld Detect POSITIVE H 08/16/22 06:06: WBC 12.4 H, RBC 4.25, Hgb 13.3, Hct 39.2, MCV 92.2, MCH 31.3, MCHC 33.9, RDW Std Deviation 43.8, RDW Coeff of Pete 13.2, Plt Count 211, MPV 10.9, Immature Gran % (Auto) 0.500, Neut % (Auto) 76.1 H, Lymph % (Auto) 15.0 L, [place] % (Auto) 8.0, Eos % (Auto) 0.2, Baso % (Auto) 0.2, Absolute Neuts (auto) 9.4 H, Absolute Lymphs (auto) 1.86, Nucleated RBC % 0 NST FHR Rate Baby A Baseline: 140 Variability:: Moderate Accelerations:: 15 x 15 Decelerations:: None NST Reactive:: Yes FHR Category:: Category I Uterine Activity:: q2-3 minutes Assessment & Plan (1) Spontaneous onset of labor: COMMENT: vaginal bleeding consistent with bloody show. no s/sx of abruption. previa resolved (2) Rh negative state in antepartum period: COMMENT: Rhogam 28 wk, pp and prn bleeding PLAN: Plan 31 yo at 40weeks with spontaneous labor SROM since 0330. clear fluids. comfortable with epidural current tracin, cat 1 FHT: Moderate variability reactive no decelerations category I tracing [place]: q2-3 Contractions SVE 8/100/0. forebag ruptured, clear fluid reviewed tracing abnormalities since last note: complete, no abnormalities A/P: 31yo at 40 weeks, transition labor. reassuring and maternal status anticipate second stage with .
[2022-08-16] MEDS: Ondansetron 4 MG/2 ML Vial IV ×2 (13:48→18:16)
[2022-08-16] MEDS: Lactated Ringers 1,000 ML 999 ML IV (16:49)
[2022-08-16] MEDS: Oxytocin 10 UNITS/ML Vial IM (16:49)
[2022-08-16] MEDS: Methylergonovine 0.2 MG/ML Ampul IM (17:02)
[2022-08-16] MEDS: Oxytocin 15 Units/NS 250ml 15 UNITS/250 ML IV.SOLN 334 UNITS IV (17:04)
[2022-08-16 17:28] LABS: Absolute Lymphocyte Count 1.81 X10^3/uL (0.83-4.51); Basophil# 0.03 X10^3/uL; Basophil% 0.1 % (0-1); Hematocrit 31.5 % (37-47); Hemoglobin 10.6 g/dL (12.0-15.0); Lymphocyte # 1.81 X10^3/ul (0.83-4.51); Lymphocyte % 8.9 % (19-41); Mean Corp Hgb Conc 33.7 g/dL (32-36); Mean Corpuscular Hgb 31.5 pg (27.0-32.0); Mean Corpuscular Volume 93.5 fL (81-99); Mean Platelet Vol. 10.9 fl (6.2-12.0); Monocyte# 1.39 X10^3/uL; Monocyte% 6.8 % (0-10); NRBC Flagged by Analyzer 0 % (0-5); Neutrophil # 17.04 X10^3/uL (2.7-7.7); Neutrophil % 83.6 % (47-70); Platelet Count 229 K/mm3 (150-450); RBC Distribution Width CV 13.4 % (11.6-14.6); RBC Distribution Width SD 45.7 fl (35.1-43.9); Red Blood Count 3.37 M/mm3 (4.2-5.4); White Blood Count 20.4 K/mm3 (4.4-11.0)
--- NOTE | 2022-08-16 17:30 | EX.PCM.OBRPT ---
Assessment & Plan (1) (spontaneous vaginal delivery): COMMENT: at 40 weeks. LC PPH, 3rd degree lac. male:[place] (2) Rh negative state in antepartum period: COMMENT: Rhogam 28 wk, pp and prn bleeding Maternal Data Information ALISSON Calculator Estimated Delivery Date Method Current WG Current Estimate 08/16/22 LMP (Certain) 40w 0d Vaginal Delivery Maternal Presentation Maternal Presentation: Active Labor Operative Information Date of Procedure: 08/16/22 Pre-Operative Diagnosis: Post-Operative Diagnosis: Surgery / Procedure Performed: Spontaneous Vaginal Delivery Type of Anesthesia: Epidural Drain: Madrigal to straight drain Estimated Blood Loss: 1200 Findings Description of Procedure: Patient began pushing and delivered the head in the [MIKAEL] presentation. The head was delivered atraumatically. The anterior and posterior shoulders delivered without complication followed by slow delivery of the rest of the and the infant was placed on the maternal abdomen. Delayed cord clamping was employed for approximately 60 seconds. Cord was clamped and cut and gentle traction was applied to the cord and the placenta delivered spontaneously immediately following it was noted to be intact with three-vessel cord. cord blood obtained. The perineum and vagina were inspected and 3rd degree laceration was appreciated, Dr. Crook consulted for repair, see note. Following placenta delivery, IM pitocin administered. increased brisk vaginal bleeding was identified. PP hemorrhage activated pt received IV fluid bolus, IV pitocin, methergine and TXA . manual removal of clots appropriately 150ml. Anesthesia consulted for hypotension, see note for blood pressure management during event. EBL was 1200. Pt with normalized BP, HR and with stable mental status with firm fundus, hemostasis achieved. Presentation: Vertex Amniotic Membrane Rupture Type: Spontaneous Time of Membrane Rupture: 0330 Amniotic Fluid Description: Clear Placental Delivery Description: Spontaneous Placenta Disposition: [facility] Cord Vessel Description: 3 Vessels Cord Entanglement: None Infant A Gender: Male (1 minute): 8 (5 minute): 9 Delayed Cord Clamping: Yes Post Vaginal Delivery Medications Given After Delivery: IV Pitocin and IM Methergin Episiotomy Description: None Laceration: 3rd degree Complication Complications: - (PP hemorrhage, 3rd degree laceration) Admit VTE Documentation VTE Present on Admission: No VTE Mechan Device Prophylaxis: SCD's Procedures Urinary/Genital [id number]: [id number] Vaginal Delivery [facility] (CNM delivery)
[2022-08-16 17:45] LABS: International Normalized Ratio 1.1; Partial Thromboplast Time 26.6 Seconds (24.1-36.2); Prothrombin Time (Protime)PT. 13.6 SECONDS (11.7-14.9)
[2022-08-16 17:46] LABS: Fibrinogen 418 mg/dl (203-444)
[2022-08-16] MEDS: Clindamycin 900 MG/50 ML BAG 75 MG IV (18:00)
[2022-08-16] MEDS: Oxytocin 15 Units/NS 250ml 15 UNITS/250 ML IV.SOLN 83 UNITS IV (18:10)
[2022-08-16] MEDS: 0.9% Saline Lock 10 ML Syringe IV ×2 (18:15→21:18)
--- NOTE | 2022-08-16 18:42 | DCINST_ITS ---
Discharge Instructions Diet Discharge Diet: No restrictions Activity Discharge Activity: May Not Drive (x1 week) and May Shower May resume sexual activity in: 6 weeks Weight Bearing Status: Full weight bearing Dressing / Incision Call your doctor if your incision/area has: Sudden Increased Bleeding, Increased Pain/ Swelling and Foul Smelling Discharge Call your doctor if you observe: Fever of 101 or Higher, Numbness or Tingling, Change in Color, Inability to urinate, Inability to have a bowel movement, Using more than 1 pad per hour, Shortness of breath, Dizziness, Fainting spells, Chest pain, Calf discomfort and Uncontrolled pain Follow Up Care Please Follow Up With: Radha Wagner CNM When: 6 weeks , please call office to make an appointment. Congratulations on the of your baby boy GAMAL!!! Test Results: Test results from this visit will be discussed in further detail at your follow- up appointment, if applicable. Discharge Plan Admission Admit Date/Time: 08/16/22 05:59 Attending Provider: Radha Wagner Primary Care Provider: Ramesh Pratt Discharge Orders/Prescriptions Prescriptions: No Action prenat.vits,geoffrey,[id number] Tablet 1 tab PO DAILY Referrals / Follow Up: Ramesh Pratt MD [Primary Care Provider] - Disposition Disposition (needs filled in before D/C Order can be placed): Home, Self Care
--- NOTE | 2022-08-16 20:01 | NURSING ---
LATE ENTRY 165: Called Dr. Crook to room for 3rd degree laceration. 1655: Pt C/O lightheadedness while Dari Wagner repairing perineal tear. Vigorous fundal massage. 1656: BP 62/39 HR 98 - pale, dizzy, and lightheaded. 165: Notified charge histotechnologist, Ana Paula Buenrostro 165: Notified Dr. Momin of BP. draw tender in room. Pt put in trendelenburg. 165: O2 applied. IM Pitocin given and 1,000 mL LR bolus initiated. 1700: Hemorrhage cart to room. 1701: Dr. Momin at bs. 1702: Methergine given IM. 1704: warm blankets applied. 1705: called Dr. Crook to bs for hemorrhage. TXA called to pharmacy. 1706: Dr. Crook at bs. 1715: 2nd IV started. CBC, PT/PTT, and CMP drawn. 1717: TXA administered. Pt stable - skin pink - no longer lightheaded or dizzy. - BP 127/52 at 1719. Bleeding controlled. HR 134 - MD aware. EBL 1,200. Recovery started. Orders for extended monitoring. See connect for vital signs and recovery. Meds administered per anesthesia - see their record.
--- NOTE | 2022-08-16 20:50 | NURSING ---
This RN took over pt care at 2049 from Maame Ernandez RN
[2022-08-16] MEDS: Docusate Sodium 100 MG Capsule PO (21:57)
[2022-08-16] MEDS: Acetaminophen 500 MG Tablet 1000 MG PO (22:03)
[2022-08-16 23:36] LABS: Absolute Lymphocyte Count 1.47 X10^3/uL (0.83-4.51); Absolute Neutrophil Count 16.6 X10^3/uL (2.0-7.7); Basophil# 0.03 X10^3/uL; Basophil% 0.2 % (0-1); Hematocrit 25.3 % (37-47); Hemoglobin 8.4 g/dL (12.0-15.0); Lymphocyte # 1.47 X10^3/ul (0.83-4.51); Lymphocyte % 7.5 % (19-41); Mean Corp Hgb Conc 33.2 g/dL (32-36); Mean Corpuscular Hgb 31.2 pg (27.0-32.0); Mean Corpuscular Volume 94.1 fL (81-99); Mean Platelet Vol. 10.6 fl (6.2-12.0); Monocyte# 1.21 X10^3/uL; Monocyte% 6.1 % (0-10); NRBC Flagged by Analyzer 0 % (0-5); Neutrophil # 16.58 X10^3/uL (2.7-7.7); Neutrophil % 84.2 % (47-70); Platelet Count 174 K/mm3 (150-450); RBC Distribution Width CV 13.5 % (11.6-14.6); RBC Distribution Width SD 45.9 fl (35.1-43.9); Red Blood Count 2.69 M/mm3 (4.2-5.4); White Blood Count 19.7 K/mm3 (4.4-11.0)
[2022-08-17] VITALS (9 sets, daily range): BP systolic 88–104; BP diastolic 47–72; PULSE 80–103; RESP 15–18; TEMP 36.1–36.8; O2SAT 96
[2022-08-17] MEDS: Acetaminophen 500 MG Tablet 1000 MG PO ×3 (03:59→20:39)
[2022-08-17 05:28] LABS: Hematocrit 23.4 % (37-47); Hemoglobin 7.8 g/dL (12.0-15.0); Mean Corp Hgb Conc 33.3 g/dL (32-36); Mean Corpuscular Hgb 31.5 pg (27.0-32.0); Mean Corpuscular Volume 94.4 fL (81-99); Mean Platelet Vol. 10.6 fl (6.2-12.0); Platelet Count 157 K/mm3 (150-450); RBC Distribution Width CV 13.7 % (11.6-14.6); RBC Distribution Width SD 46.5 fl (35.1-43.9); Red Blood Count 2.48 M/mm3 (4.2-5.4); White Blood Count 16.2 K/mm3 (4.4-11.0)
--- NOTE | 2022-08-17 07:48 | PCM.PN.OB ---
Subjective Subjective Patient doing well with some incomplete pain control- will add toradol and oxy. Tolerating PO. Ambulating and voiding without difficulty. infant feeding well. Denies chest pain, shortness of breath, calf pain/swelling, fevers, chills, lightheadedness. Objective Data Objective Data Vital Signs: Vital Signs Temp Pulse Resp BP Pulse Ox 97.9 F 100 15 103/72 100 08/17/22 03:34 08/17/22 04:13 08/17/22 03:34 08/17/22 04:13 08/16/22 18:33 Weight: 73.1 kg Body Mass Index (BMI) 25.9 Intake & Output: Intake and Output for Last 24 Hours 08/15/22 08/16/22 08/17/22 23:59 23:59 23:59 Intake Total 4448.685 / 4448.685 Output Total 2300 / 2900 1400 / 1400 Balance 2148.685 / 1548.685 -1400 / -1400 Lab / Micro Data Result Diagrams: 08/17/22 05:20 Labs: Laboratory Results - last 24 hr 08/16/22 06:06: Blood Type A NEGATIVE, Antibody Screen TNP, Crossmatch See Detail 08/16/22 06:06: Antibody Screen NEGATIVE 08/16/22 17:15: WBC 20.4 H, RBC 3.37 L, Hgb 10.6 L, Hct 31.5 L, MCV 93.5, MCH 31.5, MCHC 33.7, RDW Std Deviation 45.7 H, RDW Coeff of Pete 13.4, Plt Count 229, MPV 10.9, Immature Gran % (Auto) 0.600, Neut % (Auto) 83.6 H, Lymph % (Auto) 8.9 L, [place] % (Auto) 6.8, Eos % (Auto) 0.0, Baso % (Auto) 0.1, Absolute Neuts (auto) 17.0 H, Absolute Lymphs (auto) 1.81, Nucleated RBC % 0 08/16/22 17:15: PT 13.6, INR 1.1, APTT 26.6, Fibrinogen 418 08/16/22 23:22: WBC 19.7 H, RBC 2.69 L, Hgb 8.4 L, Hct 25.3 L, MCV 94.1, MCH 31.2, MCHC 33.2, RDW Std Deviation 45.9 H, RDW Coeff of Pete 13.5, Plt Count 174, MPV 10.6, Immature Gran % (Auto) 2.000 H, Neut % (Auto) 84.2 H, Lymph % (Auto) 7.5 L, [place] % (Auto) 6.1, Eos % (Auto) 0.0, Baso % (Auto) 0.2, Absolute Neuts (auto) 16.6 H, Absolute Lymphs (auto) 1.47, Nucleated RBC % 0 08/17/22 05:20: WBC 16.2 H, RBC 2.48 L, Hgb 7.8 L, Hct 23.4 L, MCV 94.4, MCH 31.5, MCHC 33.3, RDW Std Deviation 46.5 H, RDW Coeff of Pete 13.7, Plt Count 157, MPV 10.6 ROS Constitutional Constitutional: Reports systems reviewed and no addt'l complaints, except as documented Cardiovascular Cardiovascular: Reports systems reviewed and no addt'l complaints, except as documented Respiratory/Chest Respiratory/Chest: Reports systems reviewed and no addt'l complaints, except as documented Gastrointestinal Gastrointestinal: Reports systems reviewed and no addt'l complaints, except as documented Physical Exam Const alert, oriented x3 and no apparent distress HEENT Head and Scalp: atraumatic Resp normal respiratory effort GI soft to palpation and non-tender Bimanual Exam - Vag & Uterus: uterus non-tender Uterus Palpation: uterus fundus firm (below Umbilicus) Assessment & Plan (1) hemorrhage of vagina: COMMENT: cbc at 2300 with repeat cbc at 0600 T&C 2UPRBC on hold SCD boots overnight hold motrin x8 hours, if bleeding and coags stable may resume (2) (spontaneous vaginal delivery): COMMENT: at 40 weeks. LC PPH, 3rd degree lac. male:[place] PLAN: Plan s/p PPD # 1 1. routine post delivery care 2. breast feeding- support given 3. rh neg rhogam PRN 4. rubella immune 5. PPH- Hg stable will monitor today clinically, no additional labs unless clinically symptomatic
[2022-08-17] MEDS: Benzocaine/Lanolin/Aloe Vera 1 SPRAY EACH TOPICAL (07:55)
[2022-08-17] MEDS: oxyCODONE 5 MG Tablet PO ×3 (08:30→20:39)
[2022-08-17] MEDS: Ketorolac 10 MG Tablet PO ×2 (08:30→19:15)
[2022-08-17] MEDS: Docusate Sodium 100 MG Capsule PO ×2 (11:06→22:13)
--- NOTE | 2022-08-17 13:08 | NURSING ---
This instructor reviewed the documentation completed by Cate Day and it is complete.
[2022-08-17] MEDS: 0.9% Saline Lock 10 ML Syringe IV (20:50)
[2022-08-18] MEDS: oxyCODONE 5 MG Tablet PO (00:46)
[2022-08-18] MEDS: Ketorolac 10 MG Tablet PO ×2 (01:15→08:21)
[2022-08-18 02:40] VITALS: BP 88/45; PULSE 81; RESP 17; TEMP 36.3
[2022-08-18] MEDS: Acetaminophen 500 MG Tablet 1000 MG PO (02:41)
[2022-08-18 04:40] VITALS: BP 97/56
[2022-08-18] MEDS: Docusate Sodium 100 MG Capsule PO (08:21)
--- NOTE | 2022-08-18 08:22 | PN.OBGYN_ITS ---
Subjective Subjective Patient doing well without complaints. pain more managed with oxycontin. Tolerating PO. Ambulating and voiding without difficulty. Feeding well. Denies chest pain, shortness of breath, calf pain/swelling, fevers, chills, lightheadedness. Objective Data Objective Data Vital Signs: Vital Signs Temp Pulse Resp BP Pulse Ox O2 Del Method 97.3 F L 81 17 97/56 L 96 Room Air 08/18/22 02:40 08/18/22 02:40 08/18/22 02:40 08/18/22 04:40 08/17/22 17:34 08/17/22 17:34 Oxygen Delivery Method Room Air Weight: 161 lb 2.526 oz Body Mass Index (BMI) 25.9 Intake & Output: Intake and Output for Last 24 Hours 08/16/22 08/17/22 08/18/22 23:59 23:59 23:59 Intake Total 4448.685 / 4448.685 Output Total 2300 / 2900 1750 / 1750 Balance 2148.685 / 1548.685 -1750 / -1750 Lab / Micro Data Attestation: I reviewed the patient's lab results. Result Diagrams: 08/17/22 05:20 Physical Exam Const alert, oriented x3 and no apparent distress HEENT Head and Scalp: atraumatic Resp normal respiratory effort GI soft to palpation and non-tender Bimanual Exam - Vag & Uterus: uterus non-tender Uterus Palpation: uterus fundus firm (below Umbilicus) Assessment & Plan (1) hemorrhage of vagina: COMMENT: VSS. H&H 7.8/23.4. now asymptomatic iron supplementation TID (2) (spontaneous vaginal delivery): COMMENT: at 40 weeks. LC PPH, 3rd degree lac. male:[place] PLAN: s/p PPD # 2 1. routine post delivery care 2. breast feeding- support given 3. rh positive 4. rubella immune 5. PPH- iron supplementation with colace 6. d/c home today
[2022-08-18 08:25] VITALS: BP 97/56; PULSE 92; RESP 18; TEMP 36.8; O2SAT 96
== END 2022-08-18 11:25 | disposition home or self-care (01) | DRG 768 ==
LOC: WPOUT 06:02 → WP 06:02
PROVIDERS: Obstetrics & Gynecology; Admitting Provider Registered Nurse; PCP Family Medicine; Visit Provider Registered Nurse
DX: O76 Abnormality in fetal heart rate and rhythm complicating labor and delivery (principal); Z37.0 Single live birth; O72.1 Other immediate postpartum hemorrhage; O70.23 Third degree perineal laceration during delivery, IIIc; O26.893 Other specified pregnancy related conditions, third trimester; Z67.11 Type A blood, Rh negative; O42.92 Full-term premature rupture of membranes, unspecified as to length of time between rupture and onset of labor; Z3A.40 40 weeks gestation of pregnancy
CPT/HCPCS: 59025; 59050; 84112; 85025; 85027; 85384; 85610; 85730; 86850; 86900; 86901; 99221; J7120; A4216; G0378; J2405

== ENCOUNTER → 2022-09-25 | Outpatient (CLI) | payer OTHER, SELFPAY ==
[2022-10-02 19:04] LABS: HPV APTIMA, High Risk Negative (Negative)
== END | disposition home or self-care (01) ==
LOC: LABSPEC 15:54
PROVIDERS: PCP Family Medicine; Referring Provider Registered Nurse; Visit Provider Registered Nurse
DX: Z12.4 Encounter for screening for malignant neoplasm of cervix (principal)
CPT/HCPCS: 87624; 88175; G0145

== ENCOUNTER → 2022-10-23 | Outpatient (CLI) | payer OTHER, SELFPAY | END | disposition home or self-care (01) | LOC: LABSPEC 13:15 | PROVIDERS: PCP Family Medicine; Referring Provider Registered Nurse; Visit Provider Registered Nurse | DX: R30.0 Dysuria (principal) | CPT/HCPCS: 87086; 87088 ==

== ENCOUNTER → 2024-02-07 | Outpatient (CLI) | payer OTHER, SELFPAY ==
[2024-02-07 16:57] LABS: Absolute Lymphocyte Count 1.85 X10^3/uL (0.83-4.51); Absolute Neutrophil Count 2.5 X10^3/uL (2.0-7.7); Basophil# 0.03 X10^3/uL; Basophil% 0.6 % (0-1); Eosinophil# 0.08 X10^3/uL; Eosinophils% 1.7 % (0-5); Hematocrit 39.7 % (37-47); Lymphocyte # 1.85 X10^3/ul (0.83-4.51); Lymphocyte % 38.5 % (19-41); Mean Corp Hgb Conc 32.7 g/dL (32-36); Mean Corpuscular Hgb 30.1 pg (27.0-32.0); Mean Corpuscular Volume 91.9 fL (81-99); Mean Platelet Vol. 10.3 fl (6.2-12.0); Monocyte# 0.37 X10^3/uL; Monocyte% 7.7 % (0-10); NRBC Flagged by Analyzer 0 % (0-5); Neutrophil # 2.47 X10^3/uL (2.7-7.7); Neutrophil % 51.5 % (47-70); Platelet Count 253 K/mm3 (150-450); RBC Distribution Width CV 12.7 % (11.6-14.6); Red Blood Count 4.32 M/mm3 (4.2-5.4); White Blood Count 4.8 K/mm3 (4.4-11.0)
[2024-02-07 17:07] LABS: Vitamin D,25 Hydroxy 29.7 ng/mL
[2024-02-07 17:13] LABS: ALB/GLOB Ratio 1.1 RATIO (0.9-2.4); AST(SGOT) 20 U/L (15-37); Alanine Aminotransfer ALT/SGPT 20 U/L (13-56); Albumin, Serum 4.2 g/dL (3.2-5.0); Alkaline Phosphatase 68 U/L (45-117); Anion Gap 7 (5-15); BUN 10 mg/dL (7-18); Calcium,Total 9.2 mg/dL (8.5-10.1); Chloride 101 mmol/L (98-107); Creatinine, Serum 0.72 mg/dL (0.55-1.02); EST Glomerular Filtration Rate 100 mL/min (>60); Est Glom Filt Rate - Afr Amer 121 mL/min (>60); Globulin 3.9 g/dL (2.2-4.2); Glucose 91 mg/dL (74-106); Potassium 3.9 mmol/L (3.5-5.1); Protein, Total 8.1 g/dL (6.4-8.2); Sodium Level 137 mmol/L (136-145); Thyroid Stim Hormone (TSH) 1.56 uIU/mL (0.358-3.74)
== END | disposition home or self-care (01) ==
LOC: BIMLAB 15:02
PROVIDERS: PCP Internal Medicine; Referring Provider Internal Medicine; Visit Provider Internal Medicine
DX: F53.0 Postpartum depression (principal)
CPT/HCPCS: 36415; 80053; 82306; 84443; 85025

== ENCOUNTER → 2024-03-27 | Outpatient (CLI) | payer OTHER, SELFPAY ==
[2024-03-27 16:38] LABS: Erythrocyte Sedimentation Rate 3 mm/hr (0-30)
[2024-03-27 16:59] LABS: Rheumatoid Factor < 10.0 IU/mL (<15)
[2024-03-29 13:07] LABS: CCP IgG Antibodies 6 units (0-19)
[2024-03-29 15:08] LABS: ANTINUCLEAR ANTIBODIES DIRECT Negative (Negative)
== END | disposition home or self-care (01) ==
LOC: BIMLAB 14:31
PROVIDERS: PCP Internal Medicine; Referring Provider Physician Assistant; Visit Provider Physician Assistant
DX: M25.50 Pain in unspecified joint (principal)
CPT/HCPCS: 36415; 85652; 86038; 86140; 86200; 86225; 86235; 86431

== ENCOUNTER → 2024-12-05 | Outpatient (CLI) | payer MEDICAID, SELFPAY ==
[2024-12-05 13:59] LABS: Erythrocyte Sedimentation Rate 32 mm/hr (0-30)
[2024-12-05 14:02] LABS: Absolute Lymphocyte Count 0.95 X10^3/uL (0.83-4.51); Basophil# 0.03 X10^3/uL; Basophil% 0.6 % (0-1); Eosinophil# 0.06 X10^3/uL; Eosinophils% 1.1 % (0-5); Hematocrit 34.9 % (37-47); Hemoglobin 10.9 g/dL (12.0-15.0); Lymphocyte # 0.95 X10^3/ul (0.83-4.51); Lymphocyte % 17.6 % (19-41); Mean Corp Hgb Conc 31.2 g/dL (32-36); Mean Corpuscular Volume 83.3 fL (81-99); Mean Platelet Vol. 9.3 fl (6.2-12.0); Monocyte# 0.37 X10^3/uL; Monocyte% 6.8 % (0-10); NRBC Flagged by Analyzer 0 % (0-5); Neutrophil # 3.98 X10^3/uL (2.7-7.7); Neutrophil % 73.5 % (47-70); Platelet Count 429 K/mm3 (150-450); RBC Distribution Width CV 15.3 % (11.6-14.6); RBC Distribution Width SD 46.2 fl (35.1-43.9); Red Blood Count 4.19 M/mm3 (4.2-5.4); White Blood Count 5.4 K/mm3 (4.4-11.0)
[2024-12-05 14:20] LABS: ALB/GLOB Ratio 0.9 RATIO (0.9-2.4); AST(SGOT) 16 U/L (<=31); Alanine Aminotransfer ALT/SGPT 9 U/L (<=34); Alkaline Phosphatase 93 U/L (35-104); Anion Gap 13 (5-15); BUN 10 mg/dL (4-19); BUN/Creat Ratio 16.7 RATIO (10-20); CPK Total, Creatine Kinase 28 U/L (24-195); Calcium,Total 9.4 mg/dL (7.6-11.0); Carbon Dioxide 24.5 mmol/L (21.0-32.0); Chloride 101 mmol/L (98-108); Creatinine, Serum 0.58 mg/dL (0.70-1.20); EST Glomerular Filtration Rate 122 (>60); Globulin 4.6 g/dL (2.2-4.2); Glucose 98 mg/dL (70-99); Magnesium 2.3 mg/dL (1.5-2.2); Potassium 4.3 mmol/L (3.3-5.1); Protein, Total 8.6 g/dL (5.9-8.4); Sodium Level 138 mmol/L (133-145); Total Bilirubin 0.46 mg/dL (0.00-1.30); Vitamin B12 449 pg/mL (180-914)
[2024-12-08 14:08] LABS: ANTINUCLEAR ANTIBODIES DIRECT Negative (Negative)
== END | disposition home or self-care (01) ==
LOC: BIMLAB 08:27
PROVIDERS: PCP Internal Medicine; Referring Provider Physician Assistant; Visit Provider Physician Assistant
DX: M35.3 Polymyalgia rheumatica (principal)
CPT/HCPCS: 86225; 80053; 81374; 82550; 82607; 83735; 85025; 85652; 86037; 86038; 86140; 86235

== ENCOUNTER → 2025-02-04 | Outpatient (CLI) | payer MEDICAID, SELFPAY ==
[2025-02-05 11:09] LABS: Anti-Chromatin <0.2 AI (0.0-0.9); Anti-Jo <0.2 AI (0.0-0.9); Anti-dsDNA Ab 2 IU/mL (0-9); SJOGREN'S Anti-SS-A test < 0.2 AI (0.0-0.9); SJOGREN'S Anti-SS-B test < 0.2 AI (0.0-0.9)
[2025-02-10 02:07] LABS: Dilute Russell Viper Venom 36.8 sec (0.0-47.0); Interpretation Comment: (.); PTT-LA 40.1 sec (0.0-43.5); QNTFERON TB Mitogen Value 0.11 IU/mL (.); QNTFERON TB Nil Value 0.01 IU/mL (.); QNTFERON TB1+ Ag Value 0.01 IU/mL (.); QNTFERON TB2+ Ag Value 0.02 IU/mL (.); QNTIFERON TB Positive Criteria Indeterminate (Negative)
== END | disposition home or self-care (01) ==
LOC: LAB 11:19
PROVIDERS: PCP Nurse Practitioner Family; Referring Provider Nurse Practitioner Family; Visit Provider Nurse Practitioner Family
DX: M25.50 Pain in unspecified joint (principal)
CPT/HCPCS: 36415; 86225; 86235; 86480; 86617

== ENCOUNTER 2025-04-16 12:16 | Emergency (ER) | payer MEDICAID, SELFPAY ==
[2025-04-16 12:16] VITALS: BP 145/97; PULSE 134; RESP 20; TEMP 36.6; O2SAT 100; BMI 18.1
--- NOTE | 2025-04-16 12:29 | EKG12_ITS ---
Test Reason : Blood Pressure : */* mmHG Vent. Rate : 127 BPM Atrial Rate : 127 BPM P-R Int : 162 ms QRS Dur : 92 ms QT Int : 300 ms P-R-T Axes : 79 55 61 degrees QTcB Int : 436 ms Sinus tachycardia Right atrial enlargement Cannot rule out Inferior infarct , age undetermined Abnormal ECG Confirmed by BLAKE LARSEN, BOB ([id number]), telegraph editor ETHAN SHETH ([id number]) on 04/17/2025 10:44:38 AM Referred By: DEON/YUNIER Confirmed By: BOB LOZANO MD
== END 2025-04-16 14:15 | disposition left against medical advice (07) ==
LOC: ED 14:17
PROVIDERS: PCP Nurse Practitioner Family
DX: Z53.21 Procedure and treatment not carried out due to patient leaving prior to being seen by health care provider (principal)
CPT/HCPCS: 93005